=== PATIENT | female | born 1955 | race Caucasian/White ===

== ENCOUNTER 2023-10-09 06:30 | Day surgery (SDC) | payer OTHER, MEDICARE ==
[2023-10-05 13:15] LABS: Absolute Basophils 0.1 K/uL (0-0.5); Absolute Eosinophils 0.1 K/uL (0-0.5); Absolute Lymphocytes (CBC) 2.3 K/uL (0.7-4.9); Absolute Monocytes 0.5 K/uL (0.1-1.3); Absolute Neutrophil 6.2 K/uL (1.8-8.0); Basophils % 0.6 % (0-1.3); Eosinophils % 0.7 % (0-4.4); Hematocrit 34.5 % (36.0-45.0); Hemoglobin 11.2 g/dL (12.0-15.0); Lymphocytes % 24.9 % (15.3-44.8); MCH 28.5 pg (27.0-35.0); MCHC 32.4 g/dL (32.0-36.0); MCV 87.9 fL (80-100); MPV 7.5 fL (7.6-11.3); Monocytes % 5.8 % (3.3-12.3); Platelets 346 thou/uL (152-406); RBC Red Blood Cell Count 3.93 M/uL (3.86-4.86); Red Cell Distribution Width 16.2 % (12.1-15.2)
[2023-10-05 13:29] LABS: Anion Gap 8.5 mEq/L (5.0-15.0); Potassium 4.5 mEq/L (3.5-5.1)
[2023-10-05 13:32] LABS: PT Prothrombin Time 11.8 SECONDS (9.5-12.5); PTT, Activated Partial Thromb 47.4 SECONDS (24.3-36.9); Protime INR 1.07
--- NOTE | 2023-10-05 14:08 | RAD REPORT ---
EXAM DESCRIPTION: RAD - Chest Pa And Lat (2 Views) - 10/05/2023 1:21 pm CLINICAL HISTORY: pre op left heart cath. Hypertension COMPARISON: No comparisons TECHNIQUE: PA and lateral views of the chest were obtained. FINDINGS: The lungs are clear. Heart size is normal and central vasculature is within normal limits. No pleural effusion or pneumothorax seen. No acute bony finding noted. IMPRESSION: No acute cardiopulmonary process.
--- NOTE | 2023-10-08 14:13 | EKG ---
Test Date: 2023-10-05 Test Time: 12:59:41 Concrete Polisher: RENATA MEASUREMENT RESULTS: Intervals: Rate: 66 VT: 212 QRSD: 86 QT: 390 QTc: 408 [place]: P: 39 VT: 212 QRS: 71 T: 44 INTERPRETIVE STATEMENTS: Sinus rhythm with 1st degree AV block with premature atrial complexes with aberrant conduction Otherwise normal ECG No previous ECG available for comparison Electronically Signed On 10-08-23 14:07:02 CDT by Hair Christianson
[2023-10-09] MEDS ORDERED: HEPA 1000U/500MLS 2,000 UNIT/1,000 ML BAG IV ONE (06:53)
[2023-10-09] MEDS ORDERED: LIDOCAINE 1% 20 ML MDV ONE (06:53)
[2023-10-09] MEDS ORDERED: VERAPAMIL HCL 10 MG/4 ML VIAL IV ONE (06:53)
[2023-10-09] MEDS ORDERED: NITROGLYCERIN/D5W 50 MG/250 ML BTL IV ONE (06:53)
[2023-10-09] MEDS ORDERED: FENTANYL CITR 100 MCG/2 ML ONE (06:54)
[2023-10-09] MEDS ORDERED: HEPARIN 5000 UNIT/ML 1 ML VIAL ONE (06:54)
[2023-10-09] MEDS ORDERED: MIDAZOLAM HCL 2 MG/2 ML INJ ONE (06:54)
[2023-10-09] MEDS ORDERED: ATROPINE SULF 1 MG/10 ML SYR IV ONE (06:54)
[2023-10-09] MEDS ORDERED: CLOPIDOGREL 75 MG TABLET ONE (06:55)
[2023-10-09] MEDS ORDERED: ASPIRIN 325 MG TAB ONE (06:55)
[2023-10-09] MEDS ORDERED: TICAGRELOR 90 MG TABLET PO ONE (06:55)
[2023-10-09] MEDS ORDERED: HEPARIN 10,000 UNIT/10 ML VIAL IV ONE (06:55)
[2023-10-09] MEDS ORDERED: NA CHLORIDE 0.9% 500 ML ONE (07:15)
[2023-10-09 07:42] VITALS: TEMP 97.8
[2023-10-09 11:58] VITALS: O2SAT 100
[2023-10-09] MEDS: CLOPIDOGREL 75 MG TABLET PO ONE (12:30)
[2023-10-09 12:42] VITALS: BP 135/46
--- NOTE | 2023-10-09 13:10 | OP ---
Date of Procedure: 10/09/2023 Surgeon: Nacho Mendoza Procedures Performed: 1.Left heart catheterization. 2.Selective angiogram. 3.PCI of zone 2 with Synergy 2.25 x 12 mm drug-eluting stent. Indications For Procedure: Unstable angina, atrial fibrillation. Complications: None. Estimated Blood Loss: Less than 50 cc. Sedation: Sedation time was 40 minutes with 2 of Versed and 50 of fentanyl. Access: Right radial, closed by TR band. Description Of Procedure: After risks, benefits, and alternatives were explained to the patient, the patient agreed to proceed with procedure and signed informed consent. The patient was brought back to the cath[facility] priest, prepped and draped in a sterile fashion. A time-out was performed. Sedation was ad ministered. Right radial access, ultrasound-guided micropuncture technique was obtained, [place] 4 cat heter was advanced to the LV cavity. LVEDP was obtained. Pullback did not show any gradient. Selec tive coronary angiogram was used over the same catheter. This catheter was later exchanged for an EB U 3.0 mm guide. Heparin was administered. ACT was therapeutic. Runthrough wire was advanced throug h the lesion and we stented OM2 with Synergy 2.25 x 12 mm drug-eluting stent, postdilated with a sten t balloon up to 14 atmospheres. Final angiogram shows NILESH-3 flow. Wires were removed and the manny ter was removed over the J-wire and sheath was removed. TR band was applied. Hemostasis was achieve d. The patient was moved back to recovery in stable condition. Findings: 1.Left main, ostial 30% disease. 2.LAD, mild LI. 3.Left circ, mild LI. 4.OM1, small artery, got mid 60% to 70% disease. 5.OM2, medium-sized artery, mid 70% to 80% disease, status post PCI with Synergy 2.25 x 12 mm drug-e luting stent. 6.RCA dominant, calcified with mid 40% to 50% diffuse disease and mild LI. 7.RPDA/RPLV, mild LI. Assessment: 1.Significant OM2 disease, status post PCI with Synergy 2.25 x 12 mm drug-eluting stent. 2.Significant OM1 disease, too small for intervention, less than 1.2 mm artery. 3.Moderate mid RCA disease. Follow up with abnormal stress test. 4.Mild ostial left main disease. Plan: 1.Aspirin 325 x1 was given in the lab. Continue aspirin 81 mg daily. 2.Brilinta 180 x1 was given in the lab, the patient received Plavix 300 prior to discharge and marisa nue Plavix 75 mg daily. Okay to resume Xarelto tonight. 3.Continue aggressive medical treatment for CAD. DENA/ATIYA Voice ID: [id number] Report ID: [id number]
== END 2023-10-09 13:00 | disposition home or self-care (01) ==
LOC: CCL 06:30
PROVIDERS: ATTEND Internal Medicine Interventional Cardiology
DX: I25.110 Atherosclerotic heart disease of native coronary artery with unstable angina pectoris (principal); I48.91 Unspecified atrial fibrillation; I10 Essential (primary) hypertension; R00.2 Palpitations; E11.9 Type 2 diabetes mellitus without complications; E78.5 Hyperlipidemia, unspecified; F17.210 Nicotine dependence, cigarettes, uncomplicated; Z79.01 Long term (current) use of anticoagulants; Z79.84 Long term (current) use of oral hypoglycemic drugs; Z79.899 Other long term (current) drug therapy; Z88.0 Allergy status to penicillin; Z88.8 Allergy status to other drugs, medicaments and biological substances
CPT/HCPCS: 36415; 71046; 76937; 80048; 82947; 85025; 85347; 85610; 85730; 93005; 93458; 99152; 99153; C1725; C1893; C9600; J0461; J1644; J2001; J2250; J3010; J7040; Q9967